=== PATIENT | female | born 2000 | race Caucasian/White ===

== ENCOUNTER 2020-08-31 19:46 | Inpatient (IN) ==
[2020-08-31] MEDS ORDERED: Famotidine 20 MG/2 ML VIAL IVP PRN (20:02)
[2020-08-31] MEDS ORDERED: miSOPROStoL 25 MCG TABLET PO PRN (20:02)
[2020-08-31] MEDS ORDERED: Naloxone 0.4 MG/ML INJ IVP PRN (20:02)
[2020-08-31] MEDS ORDERED: Lidocaine 1% 20 ML MDV ID PRN (20:02)
[2020-08-31] MEDS ORDERED: Ondansetron 4 MG/2 ML VIAL IVP PRN (20:02)
[2020-08-31] MEDS ORDERED: Metoclopramide 10 MG/2 ML VIAL IVP PRN (20:02)
[2020-08-31] MEDS: Ringers Solution, Lactated 1,000 ML IVC SCH (20:50)
[2020-08-31 20:52] LABS: Basophils % 0.2 %; Eosinophils # 0.1 K/mcL (0.0-0.6); Eosinophils % 0.5 %; Hematocrit 36.5 % (35.3-44.9); Hemoglobin 11.9 g/dL (11.5-15.4); Immature Granulocytes % 0.2 % (0-4); Lymphocytes # 1.9 K/mcL (0.6-4.6); Lymphocytes % 19.9 %; Mean Corpuscular HGB Conc 32.6 g/dL (31.6-35.5); Mean Corpuscular Hemoglobin 27.7 pg (28.0-33.3); Mean Corpuscular Volume 85.1 fL (83.0-100.0); Mean Platelet Volume 9.5 fL (9.4-12.4); Monocytes # 0.7 K/mcL (0.0-1.3); Monocytes % 6.8 %; Neutrophils # 6.9 K/mcL (1.6-8.9); Platelet Count 325 K/mcL (140-400); Red Blood Count 4.29 M/mcL (3.82-4.97); Segmented Neutrophils % 72.4 %; White Blood Count 9.5 K/mcL (4.3-11.1)
[2020-08-31 21:01] LABS: Amphetamine Screen,Urine Negative ng/mL (Cutoff=1000); Barbiturate Screen,Urine Negative ng/mL (Cutoff=200); Benzodiazepines Screen,Urine Negative ng/mL (Cutoff=200); Cannabinoid Screen,Urine Negative ng/mL (Cutoff = 50); Cocaine Screen,Urine Negative ng/mL (Cutoff= 300); Opiate Screen,Urine Negative ng/mL (Cutoff=300); Phencyclidine Screen,Urine Negative ng/mL (Cutoff=25)
[2020-09-01] MEDS ORDERED: Oxytocin 20 units/ LR 1000 mL 20 UNIT/1,000 ML BAG IVC SCH (01:00)
[2020-09-01] MEDS ORDERED: Oxytocin 20 units/ LR 1000 mL 20 UNIT/1,000 ML BAG IVC ONE (01:04)
[2020-09-01] MEDS ORDERED: EPHEDrine 50 MG/ML VIAL IVP PRN (01:16)
[2020-09-01] MEDS ORDERED: Epidural Premix (fent/bupiv) 110 ML EP SCH (01:30)
[2020-09-01] MEDS ORDERED: EPHEDrine 50 MG/ML VIAL ONE (09:38)
[2020-09-01] MEDS ORDERED: *HR* Phenylephrine 10 MG/ML VIAL ONE (09:39)
[2020-09-01] MEDS ORDERED: Ropivacaine/PF 0.2% 20 ML VIAL ONE (14:23)
[2020-09-01] MEDS: Ringers Solution, Lactated 1,000 ML IVC SCH (21:52)
[2020-09-02] MEDS ORDERED: Ropivacaine/PF 0.2% 20 ML VIAL ONE ×2 (03:32→05:43)
[2020-09-02 04:42] LABS: Aspartate Amino Transferase 10 Units/L (13-39); eGFR For African Americans > 60 (> 60); eGFR For Non-African Americans > 60 (> 60)
[2020-09-02] MEDS ORDERED: Famotidine 20 MG/2 ML VIAL IVP ONE (04:59)
[2020-09-02] MEDS ORDERED: CeFAZolin Syr 3,000MG/30 ML 3,000 MG/30 ML SYRINGE IVPB ONE (04:59)
[2020-09-02] MEDS ORDERED: Metoclopramide 10 MG/2 ML VIAL IVP ONE (04:59)
[2020-09-02] MEDS ORDERED: Oxytocin 20 units/ LR 1000 mL 20 UNIT/1,000 ML BAG IVC SCH (05:00)
[2020-09-02] MEDS ORDERED: Azithromycin 500 MG in 0.9 % Sodium Chloride 250 ML IVPB ONE (05:03)
[2020-09-02] MEDS ORDERED: Chloroprocaine/PF 20 ML VIAL INFILT ONE (05:15)
[2020-09-02 05:22] LABS: Hematocrit 34.7 % (35.3-44.9); Hemoglobin 11.1 g/dL (11.5-15.4); Mean Corpuscular Hemoglobin 27.4 pg (28.0-33.3); Mean Corpuscular Volume 85.7 fL (83.0-100.0); Mean Platelet Volume 9.9 fL (9.4-12.4); Platelet Count 320 K/mcL (140-400); Red Blood Count 4.05 M/mcL (3.82-4.97); Red Cell Distribution Width 14.3 % (11.5-14.5)
[2020-09-02 05:25] LABS: White Blood Count 16.2 K/mcL (4.3-11.1)
[2020-09-02] MEDS ORDERED: *HR* Morphine Sulfate/PF 10 MG/10 ML AMPUL ONE (06:22)
[2020-09-02] MEDS ORDERED: Acetaminophen IV 1,000 MG/100 ML INFUS..BTL ONE (06:22)
[2020-09-02] MEDS ORDERED: Ketorolac 30 MG/ML VIAL ONE (06:23)
[2020-09-02] MEDS ORDERED: Metoclopramide 10 MG/2 ML VIAL IVP PRN (07:38)
[2020-09-02] MEDS ORDERED: Sennosides 8.6 MG TABLET PO PRN (07:38)
[2020-09-02] MEDS ORDERED: *HR* OxyCODONE/APAP 5/325 TABLET PO PRN (07:38)
[2020-09-02] MEDS ORDERED: Naloxone 0.4 MG/ML INJ IVP PRN (07:38)
[2020-09-02] MEDS ORDERED: Ondansetron 4 MG/2 ML VIAL IVP PRN (07:38)
[2020-09-02] MEDS ORDERED: *HR* OxyCODONE Immed Rel 5 MG TABLET PO PRN (07:38)
[2020-09-02] MEDS: Ibuprofen 600 MG TABLET PO PRN ×3 (08:02→21:45)
[2020-09-02] MEDS: Oxytocin 20 units/ LR 1000 mL 20 UNIT/1,000 ML BAG IVC SCH ×2 (08:37→14:58)
[2020-09-02] MEDS ORDERED: NON-FORMULARY MEDICATION 1 EACH EACH (Prenatal Caplet 1 TAB) PO SCH (09:00)
[2020-09-02] MEDS ORDERED: Prenatal Vit/FA 1 EACH TABLET PO SCH (09:00)
[2020-09-02] MEDS: Simethicone 80 MG TAB.CHEW PO PRN (14:55)
[2020-09-02] MEDS ORDERED: Methylergonovine 0.2 MG/ML AMPUL IM ONE (17:26)
[2020-09-03] MEDS: Ibuprofen 600 MG TABLET PO PRN ×2 (04:11→14:28)
[2020-09-03 06:00] LABS: Basophils % 0.2 %; Eosinophils % 0.3 %; Hematocrit 25.9 % (35.3-44.9); Immature Granulocytes % 0.5 % (0-4); Lymphocytes # 1.7 K/mcL (0.6-4.6); Lymphocytes % 15.5 %; Mean Corpuscular HGB Conc 31.3 g/dL (31.6-35.5); Mean Corpuscular Hemoglobin 26.8 pg (28.0-33.3); Mean Corpuscular Volume 85.8 fL (83.0-100.0); Mean Platelet Volume 9.4 fL (9.4-12.4); Monocytes # 0.7 K/mcL (0.0-1.3); Monocytes % 6.1 %; Neutrophils # 8.7 K/mcL (1.6-8.9); Platelet Count 201 K/mcL (140-400); Red Blood Count 3.02 M/mcL (3.82-4.97); Red Cell Distribution Width 14.6 % (11.5-14.5); Segmented Neutrophils % 77.4 %; White Blood Count 11.2 K/mcL (4.3-11.1)
[2020-09-03 06:01] LABS: Hemoglobin 8.1 g/dL (11.5-15.4)
[2020-09-03 07:23] VITALS: BP 119/83
[2020-09-03] MEDS: Simethicone 80 MG TAB.CHEW PO PRN (08:26)
== END 2020-09-03 17:27 | disposition home or self-care (01) | DRG 787 ==
LOC: 1NENULAB 19:46 → 1NENUOBS 09-02 09:21
PROVIDERS: ADMIT Obstetrics & Gynecology; ATTEND Obstetrics & Gynecology